=== PATIENT | female | born 1990 | race African-American/Black ===

== ENCOUNTER 2025-03-25 23:25 | Emergency (ER) | payer BC, SELFPAY ==
[2025-03-25 23:29] VITALS: BP 124/72
[2025-03-25 23:31] VITALS: BP 124/72; BMI 31.7
[2025-03-25] MEDS: DUONEB 3 ML INH (23:50)
[2025-03-26] VITALS: BP 123/69
[2025-03-26 00:31] LABS: Hematocrit 37.1 % (37.0-47.0); Hemoglobin 12.0 g/dL (12.0-16.0); Mean Corp Hgb Conc. 32.3 g/dL (33.0-37.0); Mean Corpuscular Volume 70.3 fL (81.0-99.0); Nucleated Red Blood Cells % 0 %; Platelet Count 412 10^3/uL (130-400); Red Cell Dist. Width 15.4 % (11.5-14.5)
[2025-03-26 00:46] LABS: ALT (SGPT) 41 U/L (0-35); AST (SGOT) 23 U/L (14-36); Albumin 4.7 g/dl (3.5-5.0); Alkaline Phosphatase 57 U/L (38-126); Blood Urea Nitrogen 12 mg/dl (7-17); Calcium 9.8 mg/dl (8.4-10.2); Carbon Dioxide 23 mmol/L (22-30); Chloride 109 mmol/L (98-107); Estimated Creatinine Clearance 93 ml/min; Glucose 155 mg/dl (70-99); Potassium 4.2 mmol/L (3.5-5.1); Sodium 140 mmol/L (135-145); Total Protein 7.3 g/dl (6.3-8.2); eGFR > 60.00
[2025-03-26 01:00] VITALS: BP 120/71
[2025-03-26 01:57] LABS: COVID-19 Antigen Negative (Negative)
--- NOTE | 2025-03-26 02:29 | ED.GENMED ---
History of Present Illness
<Duy Hughes, DO - Last Filed: 03/26/25 02:51>
General
Chief Complaint: Breathing Problem
Source: patient
Exam Limitations: none
Time Seen by Provider: 03/26/25 02:15
Nursing documentation reviewed up to this point in time: agreed with
History of Present Illness
History of Present Illness:
Note:
CHIEF COMPLAINT(S)
Shortness of breath and difficulty completing sentences.
HISTORY OF PRESENT ILLNESS
The patient is a 34-year-old female with a history of asthma who presented with shortness of breath reminiscent of previous asthma exacerbations. She expressed an attempt to avoid hospital admission by managing her symptoms at home but reported
worsening symptoms necessitating evaluation. The patient has experienced asthma exacerbations in the past, requiring hospital stays. Upon presentation, she was on 2 liters of supplemental oxygen. She described her difficulty in completing sentences
due to breathlessness.
MEDICATIONS
The patient received an intravenous bronchodilator treatment.
REVIEW OF SYSTEMS
- Respiratory: Shortness of breath, difficulty completing sentences.
- General: History of asthma.
PHYSICAL EXAM
General: Alert, no acute distress.
Skin: Warm, dry.
Head: Normocephalic, atraumatic.
Neck: Supple, trachea midline.
Eye Ears, nose, mouth and throat: Oral mucosa moist.
Cardiovascular: Normal peripheral perfusion, no edema.
Respiratory: Respirations are non-labored.
Gastrointestinal: Abdomen nondistended.
Back: Normal range of motion, normal alignment.
Musculoskeletal: Normal range of motion, normal strength.
Neurological: Alert and oriented to person, place, time, and situation, no focal neurological deficit observed.
Psychiatric: Cooperative, appropriate mood and affect.
PROBLEM LIST
Acute Problems:
- Asthma exacerbation
PLAN
Administer a bronchodilator via nebulizer.
Monitor oxygen saturation levels and respiratory status.
Consider admission for further observation and management if there is no improvement after the treatment.
DIFFERENTIAL DIAGNOSIS
The Differential Diagnosis includes, in no particular order and is not limited to:
- Asthma exacerbation
- Chronic obstructive pulmonary disease (COPD) exacerbation
- Pneumonia
- Acute respiratory distress syndrome (ARDS)
- Pulmonary embolism
- Congestive heart failure
- Anaphylaxis
- Pneumothorax
- Upper airway obstruction
- Viral respiratory infection
CARE-UPDATE
03/26/25 - 02:48
Patient shows mild hypoxia on 2L oxygen. Chest x-ray pending to evaluate for pneumonia. Admittance to hospitalist initiated for further management.
Disposition:
SUMMARY OF ENCOUNTER
The patient is a 34-year-old female with a history of asthma who presented to the emergency department with shortness of breath and difficulty completing sentences, suggestive of an asthma exacerbation. She aimed to manage her symptoms at home but
noted worsening that required evaluation. Upon presentation, she was on 2 liters of supplemental oxygen and received an intravenous bronchodilator treatment. A chest x-ray was ordered to evaluate for pneumonia. Mild hypoxia was noted, and her oxygen
saturation levels and respiratory status were monitored continuously.
DISPOSITION
Admit to hospitalists for further management.
ASSESSMENT
Asthma exacerbation with mild hypoxia; differential considerations include pneumonia and pulmonary embolism, although these are considered less likely.
EMERGENCY TREATMENTS ADMINISTERED
duoneb therapy was provided.
MANAGEMENT OF THE PATIENTS CARE WAS DISCUSSED WITH
Hospitalist team for further management upon admission.
PLAN
The plan involves administering a bronchodilator via nebulizer, monitoring oxygen saturation levels and respiratory status, and conducting a chest x-ray to rule out pneumonia. Admission for further observation and management is indicated given the
lack of improvement after initial treatment.
INDEPENDENT REVIEW OF LABS AND INTERPRETATION OF TESTS
- My independent interpretation of the chest x-ray is pending.
MEDICAL DECISION MAKING
- Number and Complexity of Problems Addressed: Chronic conditions affecting care: asthma exacerbation. Differential diagnosis includes asthma exacerbation, chronic obstructive pulmonary disease (COPD) exacerbation, pneumonia, acute respiratory
distress syndrome (ARDS), pulmonary embolism, congestive heart failure, anaphylaxis, pneumothorax, upper airway obstruction, and viral respiratory infection.
- Data:
Category 1: Tests and documents. Reviewed the need for a chest x-ray to assess for pneumonia, and oxygen saturation levels.
Category 3: Management discussion with hospitalist team for admission.
- Risk: Prescription drug management and decision to admit for inpatient care.
DIAGNOSIS
- Asthma exacerbation (ICD-10: J45.901)
Past History
<Duy Hughes, DO - Last Filed: 03/26/25 02:51>
Past History
ED Past Medical History: Asthma
ED Past Surgical History: None
Social History
Tobacco: Non-smoker
Alcohol: None
Drug: None
Personal:
Living: with family
Employment: Employed
Family History
Family History: Other (Noncontributory)
Phy Exam
<Casper Pelletier, DO - Last Filed: 03/26/25 07:15>
Physical Exam
Physical Exam:
.
Course
<Duy Hughes, DO - Last Filed: 03/26/25 02:51>
Orders/Labs/Results
Orders:
Orders
03/25/25 23:39
Electrocardiogram (*1) Urgent
Reason for Study: Shortness of Breath
EKG- Treatment ONCE
03/25/25 23:49
Ipratropium/Albuterol Sulfate [Duoneb] 3 ml INH R NOW ONE
03/26/25 00:06
Complete Blood Count/With Diff Urgent
Comprehensive Metabolic Panel Urgent
03/26/25 01:16
COVID-19 Antigen Urgent
Source: Nasal Swab
Influenza A+B Rapid Molecular Urgent
RENETTA Source: Nasal Swab
Specimen Description:
03/26/25 02:27
Dexamethasone Sod Phosphate [Decadron] 10 mg IV NOW STA
Ipratropium/Albuterol Sulfate [Duoneb] 3 ml INH R NOW ONE
03/26/25 02:44
Ibuprofen [Motrin] 600 mg PO NOW STA
03/26/25 02:46
CR Chest - 2 Views Urgent
Comment:
Reason For Exam: short of breath
03/26/25 02:50
Admit/Transfer Patient As Directed
Co-Sign Provider:
Level of Care: Observation services
Assign to:: Medical/Surgical
Physician / Group: cristian
Diagnosis: asthma exacerbation
03/26/25 02:51
Code Status As Directed
Resuscitation Status: Full Code
PRN Pain Medication Management As Directed
May give lesser potent ordered pain med per pt: Yes
preference::
Protocol:: Medication orders for pain may be administered in a
manner that supports deferring to patient preference
when the pt is:
- Requesting an ordered lesser potent pain medication.
Least to most potent pain medications are defined
as: acetaminophen < NSAID < tramadol < opioids
(morphine, oxycodone, hydromorphone).
- Requesting a lesser dose of the same medication IF
ORDERED.
- Requesting a less intrusive route of administration
if both routes are prescribed by the provider (PO <
IV).
Abnormal Lab Results
03/26/25
00:06
WBC 14.5 H 10^3/uL
(4.8-10.8)
MCV 70.3 L fL
(81.0-99.0)
MCH 22.7 L pg
(27.0-31.0)
MCHC 32.3 L g/dL
(33.0-37.0)
RDW 15.4 H %
(11.5-14.5)
Plt Count 412 H 10^3/uL
(130-400)
Abs Immat Gran (auto) 0.2 H 10^3/uL
(0-0.05)
Absolute Neuts (auto) 9.9 H 10^3/uL
(1.4-6.5)
Absolute Monos (auto) 1.1 H 10^3/uL
(0.1-0.6)
Immature Gran % 1.5 H %
(0-0.5)
Chloride 109 H mmol/L
(98-107)
Glucose 155 H mg/dl
(70-99)
ALT 41 H U/L
(0-35)
03/26/25 00:06
03/26/25 00:06
Vital Signs
Initial and Last Documented VS:
Initial Vital Signs
Pulse Resp Pulse Ox
98 16 92
03/25/25 23:27 03/25/25 23:27 03/25/25 23:27
Last Documented Vital Signs
Temp Pulse Resp BP Pulse Ox
97.1 F 72 18 120/71 92
03/25/25 23:31 03/26/25 04:36 03/26/25 04:36 03/26/25 01:00 03/26/25 02:30
<Casper Pelletier, DO - Last Filed: 03/26/25 07:15>
Orders/Labs/Results
Orders:
Orders
03/25/25 23:39
Electrocardiogram (*1) Urgent
Reason for Study: Shortness of Breath
EKG- Treatment ONCE
03/25/25 23:49
Ipratropium/Albuterol Sulfate [Duoneb] 3 ml INH R NOW ONE
03/26/25 00:06
Complete Blood Count/With Diff Urgent
Comprehensive Metabolic Panel Urgent
03/26/25 01:16
COVID-19 Antigen Urgent
Source: Nasal Swab
Influenza A+B Rapid Molecular Urgent
RENETTA Source: Nasal Swab
Specimen Description:
03/26/25 02:27
Dexamethasone Sod Phosphate [Decadron] 10 mg IV NOW STA
Ipratropium/Albuterol Sulfate [Duoneb] 3 ml INH R NOW ONE
03/26/25 02:44
Ibuprofen [Motrin] 600 mg PO NOW STA
03/26/25 02:46
CR Chest - 2 Views Urgent
Comment:
Reason For Exam: short of breath
03/26/25 02:50
Admit/Transfer Patient As Directed
Co-Sign Provider:
Level of Care: Observation services
Assign to:: Medical/Surgical
Physician / Group: cristian
Diagnosis: asthma exacerbation
03/26/25 02:51
Code Status As Directed
Resuscitation Status: Full Code
PRN Pain Medication Management As Directed
May give lesser potent ordered pain med per pt: Yes
preference::
Protocol:: Medication orders for pain may be administered in a
manner that supports deferring to patient preference
when the pt is:
- Requesting an ordered lesser potent pain medication.
Least to most potent pain medications are defined
as: acetaminophen < NSAID < tramadol < opioids
(morphine, oxycodone, hydromorphone).
- Requesting a lesser dose of the same medication IF
ORDERED.
- Requesting a less intrusive route of administration
if both routes are prescribed by the provider (PO <
IV).
Abnormal Lab Results
03/26/25
00:06
WBC 14.5 H 10^3/uL
(4.8-10.8)
MCV 70.3 L fL
(81.0-99.0)
MCH 22.7 L pg
(27.0-31.0)
MCHC 32.3 L g/dL
(33.0-37.0)
RDW 15.4 H %
(11.5-14.5)
Plt Count 412 H 10^3/uL
(130-400)
Abs Immat Gran (auto) 0.2 H 10^3/uL
(0-0.05)
Absolute Neuts (auto) 9.9 H 10^3/uL
(1.4-6.5)
Absolute Monos (auto) 1.1 H 10^3/uL
(0.1-0.6)
Immature Gran % 1.5 H %
(0-0.5)
Chloride 109 H mmol/L
(98-107)
Glucose 155 H mg/dl
(70-99)
ALT 41 H U/L
(0-35)
03/26/25 00:06
03/26/25 00:06
Vital Signs
Initial and Last Documented VS:
Initial Vital Signs
Pulse Resp Pulse Ox
98 16 92
03/25/25 23:27 03/25/25 23:27 03/25/25 23:27
Last Documented Vital Signs
Temp Pulse Resp BP Pulse Ox
97.1 F 72 18 120/71 92
03/25/25 23:31 03/26/25 04:36 03/26/25 04:36 03/26/25 01:00 03/26/25 02:30
<Duy Hughes DO - Last Filed: 03/26/25 02:51>
*Pulse Oximetry
SaO2: 92
Nasal Cannula flow liters per minute: 2
Patient hypoxic: yes
*Critical Care Note
Total Time (30-74mins, 75-104mins- exclusive of procedures): Not Applicable
<Casper Pelletier DO - Last Filed: 03/26/25 07:15>
Update Note
Update Note:
34-year-old female seen by hospitalist after Dr. Hughes admitted her. At time of hospitalist H&P, patient had no complaints. She was very much improved. She received Decadron and nebs and satting 98% on room air with no deficits. Labs are
unremarkable. Patient wishes to go home. Peak flows are approximately 450. She has prescription for prednisone 60 mg daily with a taper as well as nebulizers Symbicort and albuterol inhalers at home. She is well versed in managing her asthma.
Patient would like to be discharged. After seeing her, I am in agreement with this plan.
ED Attending Note
<Duy Hughes, DO - Last Filed: 03/26/25 02:51>
-
Portions of this chart may have been created with voice recognition software.� Occasional wrong word or��sound alike� substitutions may have occurred due to the inherent limitations of voice recognition software.
Discharge Plan
Departure
Patient Disposition: Home (Routine Discharge)
Date of Disposition: 03/26/25
Time of Disposition: 02:48
Admit to: Telemetry
Patient with high blood pressure during this ER visit?: No
Condition: Fair
Discharge Problem:
Asthma exacerbation
Instructions: Asthma, Adult (DC)
Prescriptions:
No Action
albuterol sulfate [ProAir HFA] 90 mcg/actuation Hfa Aerosol Inhaler
2 puff INHALATION Q4HPRN PRN (Reason: shortness of breath/cough) Qty: 90 0RF
Rx Instructions:
Dispense with spacer
pantoprazole [Protonix] 20 mg Tablet,Delayed Release (Dr/Ec)
20 mg PO DAILY
montelukast [Singulair] 10 mg Tablet
10 mg PO DAILY
fluticasone propionate [Flonase] 50 mcg/actuation [place],Suspension
1 spray INTRANASAL DAILY
Referrals:
UNKNOWN - PT DOES,NOT KNOW [Family Provider]
Stand Alone Forms: Return to Work
Activity Restrictions/Additional Instructions:
Thank You for choosing [facility].
It was a pleasure meeting you and taking part in your care. We hope for your continued healing and wellness.
Please read discharge instructions in their entirety. However, they are for general education and may not describe your exact diagnosis at discharge. Information on your ER visit and medical conditions were discussed with you along with appropriate
follow up information...
If indicated, please take your medications as instructed and indicated on discharge paperwork.
Please schedule a follow up appointment as directed. Call to schedule an appointment
Please return to the emergency department with ANY change in, persisting, or worsening of symptoms. If any of your symptoms do not improve, or persist, or become more severe within 6-12 hours, please return to the emergency department for further
care.
Please return to the emergency department if you develop a headache, neck pain/stiffness, fever greater than 100.4F, chest pain, shortness of breath, persistent nausea, vomiting, slurred speech, difficulty walking, numbness/tingling, weakness, signs
of infection or any other symptoms that are worrisome to you.
Interventions
Interventions:
*Risk Screen - Suicide Last Done: 03/25/25 23:31
*General Assessment Last Done: 03/26/25 04:36
*Neglect/Abuse Screening Last Done: 03/25/25 23:31
*ED- Fall Risk Assessment Last Done: 03/25/25 23:31
*ED COVID-19 Vaccine History Last Done: 03/25/25 23:31
*Nursing Disposition Last Done: 03/26/25 04:36
ED- Cardiac Assessment Last Done: 03/26/25 00:11
ED- Pulmonary Assessment Last Done: 03/26/25 00:11
Discharge Date and Time
Discharge Date/Time: 03/26/25 04:37
Print Language: CITIZEN OF [place]
[2025-03-26] MEDS: DECADRON 10 MG IV (02:30)
[2025-03-26] MEDS: DUONEB 3 ML INH (02:30)
--- NOTE | 2025-03-26 02:49 | HPS.HSE ---
Family Physician
-
Family Physician: NOT KNOW UNKNOWN - PT DOES
Chief Complaint
-
Shortness of breath
History of Present Illness
Patient is a 34-year-old female with past medical history significant for asthma who presents to the emergency department with shortness of breath cough and wheezing.
She reports that she was exposed to cousin who had cold and flulike symptoms a few days ago. By the weekend she started having mild sinus congestion. Then she developed shortness of breath and wheezing without coughing. She spoke to her physician
was started on prednisone this a.m. and told the patient to relax and not go to work. Patient eventually went to work and while at work she felt short of breath and continued to wheeze incessantly and had no improvement with inhaler so she said
come to the emergency department.
In the emergency department, patient was afebrile, blood pressure was 120/70 with a pulse of 77 and she was satting 92% on room air.
EGD showed a sinus rhythm at a rate of 88.
White count was 14.5, hemoglobin 12 and platelet 412. Electrolytes BUN/creatinine were normal. COVID test was negative. Influenza test was negative.
Chest x-ray shows no acute infiltrates
Medical History
Past Medical History
Past Medical History: Reports Asthma and GERD
Past Surgical History: Reports None
Social History
Tobacco: Non-smoker
Alcohol: None
Drug: None
Family History
Family History: Not pertinent
Allergies / Home Medications
Allergies reflects when Allergies were last updated in [facility].
Home Medications with original date entered in [facility]
Allergy/Medication List:
Allergies
Allergy/AdvReac Type Severity Reaction Status Date / Time
No Known Allergies Allergy Verified 03/25/25 23:31
Home Medications
albuterol sulfate 90 mcg/actuation aerosol inhaler (ProAir HFA) 2 puff inhalation Q4HPRN PRN shortness of breath/cough #90 grams 03/28/23
fluticasone propionate 50 mcg/actuation nasal spray,suspension 1 spray intranasal DAILY 03/26/25
montelukast 10 mg tablet (Singulair) 10 mg PO DAILY 03/26/25
pantoprazole 20 mg tablet,delayed release (Protonix) 20 mg PO DAILY 03/26/25
Review of Systems
-
Constitutional: Reports No Symptoms
EENT: Reports No Symptoms
Respiratory: Reports Trouble Breathing
Cardiac: Reports No Symptoms
Abdomen/GI: Reports No Symptoms
: Reports No Symptoms
Musculoskeletal: Reports No Symptoms
Skin: Reports No Symptoms
Neurological: Reports No Symptoms
Endocrine: Reports No Symptoms
Hematologic/Lymphatic: Reports No Symptoms
Psych: Reports No Symptoms
Physical Exam
Vital Signs
Vital Signs
Temp Pulse Resp BP Pulse Ox
97.1 F 77 19 120/71 92
03/25/25 23:31 03/26/25 01:00 03/26/25 01:00 03/26/25 01:00 03/26/25 02:30
Physical Exam
General: Well Developed, Well Nourished and No Apparent Distress
HEENT: NormoCephalic, Moist mucous membranes and Atraumatic
Respiratory: Clear and Wheezes ( Faint expiratory wheezes mostly in the right lower lobe)
Cardiac: S1/S2 and Regular Rhythm; No Murmur or Rub
GI: Soft, Non Tender, Non Distended and Normal Bowel Sounds; No Organomegaly
Rectal: Deferred by Provider
Musculoskeletal: No Clubbing, No Cyanosis and No Edema
Skin: No Rash
Neuro: AO x 3 and Nonfocal/grossly intact
Laboratory Results
-
03/26/25 00:06
03/26/25 00:06
Laboratory Results
Total Bilirubin 0.4 mg/dl (0.2-1.3) 03/26/25 00:06
AST 23 U/L (14-36) 03/26/25 00:06
ALT 41 U/L (0-35) H 03/26/25 00:06
Alkaline Phosphatase 57 U/L (38-126) 03/26/25 00:06
Data Reviewed
-
Diagnostic Radiology: Image Personally Visualized and interpreted
Medical Tests (Nuc Med, Echo, EKG etc): Image Personally Visualized and interpreted
Lab Data: Labs Reviewed by me
Old Records: Reviewed
Impression/Plan
-
IMPRESSION:
34 y.o with acute asthma exacerbation. Much improved after initial treatment in the ED. Now she is speaking in full sentences without any dyspnea on exertion. She has mild wheezes and she is not hypoxic. Labs x-ray not alarming. Likely can
return home on prescribed a prednisone taper and at home inhaler regimen which already includes nebulizers, inhalers, Symbicort, prednisone and allergy meds.
PLAN:
Asthma exacerbation vs asthmatic bronchitis
- admit to med/surg observation
- no productive cough, hold off abx
- steroids with prednisone 60 mg daily
- albuterol q 3 hprn nebs
- start ICS/LABA bid
- continue montelukast
- cough suppression and pain control
- peak flow bid, if > 300 patient can likely be discharged from ED
- no risk factors for PE, no further imaging at this poin
DVT PPX - SCDs
Code status - Full code
[2025-03-26] MEDS: MOTRIN 600 MG PO (04:05)
== END 2025-03-26 04:37 | disposition home or self-care (01) ==
LOC: EMR 23:25
PROVIDERS: Student in an Organized Health Care Education/Training Program; EMERGENCY PHYSICIAN Emergency Medicine
DX: J45.901 Unspecified asthma with (acute) exacerbation (principal); Z79.52 Long term (current) use of systemic steroids; Z79.899 Other long term (current) drug therapy
CPT/HCPCS: 99284; 94640; 96374; 71046; 80053; 85025; 87502; 87811; 93005